=== PATIENT | male | born 1990 | race Caucasian/White ===

== ENCOUNTER 2020-08-11 09:01 | Outpatient (CLI) | payer OTHER, SELFPAY | END 2020-08-11 09:02 | disposition home or self-care (01) | LOC: ANHCOVIDVC 09:02 | DX: Z23 Encounter for immunization (principal) | CPT/HCPCS: 0001A; 91300 ==

== ENCOUNTER 2020-09-01 09:05 | Outpatient (CLI) | payer OTHER, SELFPAY | END 2020-09-01 09:06 | disposition home or self-care (01) | LOC: ANHCOVIDVC 09:05 | DX: Z23 Encounter for immunization (principal) | CPT/HCPCS: 0002A; 91300 ==